=== PATIENT | male | born 1995 | race Caucasian/White ===

== ENCOUNTER 2016-07-15 18:35 | Emergency (ER) | payer BC ==
--- NOTE | ~2016-07-15 | CR63 ---
[facility] A Service of [facility] RADIOLOGY TEXT RESULTS PATIENT: KARLOS OCAMPO LOCATION: SED : [birth year] UNIT #: [id number] AGE: [address]: RUBÉN SIBLEY SEX: M ORDER DR: [id number] [place] [id number] E MR#: [id number] Acc #: [id number] NAME: KARLOS OCAMPO : 1995 SEX: M STUDY DATE/TIME: 07/15/2016 19:27 UNIT: SED ROOM: STUDY DESCRIPTION: CR Chest 2 View Attending Physician: Rubén Sibley Ordering Physician: Duran Rinaldi M.D. Primary Care Physician: No Primary Care Physician MEDICAL IMAGING REPORT This report is preliminary unless electronic signature is present. EXAM Chest x-ray. HISTORY Chest tightness and shortness of breath, onset today. TECHNIQUE 2 views of the chest were obtained. FINDINGS PA and lateral examination of the chest upright shows a good expansion of the parenchyma with a normal distribution of the pulmonary vascularity. There is no indication of congestion, effusion, infiltrate, tumor, or nodular density. The pleural reflections and diaphragmatic contours are normal. The cardiac silhouette and mediastinal anatomy is within normal limits. IMPRESSION Normal 2-view chest. Dictated by... Thaddeus Cortés M.D. THIS IS AN ELECTRONICALLY VERIFIED REPORT Thaddeus Cortés M.D. at 07/15/2016 10:18 PM RLF/savita TD: 07/15/2016 21:22 JOB #: [id number] [facility] A Service of [facility] RADIOLOGY TEXT RESULTS PATIENT: KARLOS OCAMPO LOCATION: SED : [birth year] UNIT #: [id number] AGE: [address]: RUBÉN SIBLEY SEX: M ORDER DR: MEDICAL IMAGING REPORT Page 1 of 1
[~2016-07-15 18:35] MED LIST: IBUPROFEN PO; KEFLEX500 M2 PO; MOTRIN600 MG PO; NO MEDICATIONS; NYQUIL D COLD295 ML; PERCOCET5/325 PO; VOLTAREN75 MG PO; ZOFRAN ODT4 MG PO
== END 2016-07-15 20:17 | disposition home or self-care (01) ==
LOC: SED 18:35
DX: F12.980 Cannabis use, unspecified with anxiety disorder (principal)
CPT/HCPCS: 71020; 99283